=== PATIENT | female | born 1960 | race Caucasian/White ===

== ENCOUNTER → 2024-12-01 12:13 | Outpatient (REF) | payer OTHER, SELFPAY | LOC: WDC 12:13 | PROVIDERS: ATTENDING PHYSICIAN Obstetrics & Gynecology Gynecology; FAMILY PHYSICIAN Family Medicine | DX: Z12.31 Encounter for screening mammogram for malignant neoplasm of breast (principal) | CPT/HCPCS: 77063; 77067 ==

== ENCOUNTER → 2024-12-18 07:41 | Outpatient (REF) | payer OTHER, SELFPAY | LOC: WDC 07:41 | PROVIDERS: ATTENDING PHYSICIAN Obstetrics & Gynecology Gynecology; FAMILY PHYSICIAN Family Medicine | DX: R92.2 Inconclusive mammogram (principal); Z80.3 Family history of malignant neoplasm of breast | CPT/HCPCS: 76641 ==